=== PATIENT | female | born 1995 | race Two or more races ===

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

== ENCOUNTER 2017-01-10 01:33 | Emergency (ER) | payer MEDICAID ==
[~2017-01-10] VITALS: Ht 157.5 cm; Wt 44.0 kg
[~2017-01-10 01:33] MED LIST changes: +NKM; +PEPCID AC20 M2 PO
[2017-01-10 01:45] VITALS: BP 132/79
[2017-01-10] MEDS ORDERED: IBUPROFEN600 MG ORAL (01:59)
[2017-01-10] MEDS ORDERED: AMOXICILLIN500 MG ORAL (01:59)
--- NOTE | 2017-01-10 02:18 | Emergency Room Report ---
History of Present Illness General Chief Complaint: General Complaint Source: Patient Present Illness HPI 42-aung-uia-female no significant past medical history presenting with left- sided facial pain intermittently for one month. Patient states that she is coming into the emergency room now because it is now worse. Takes Tylenol with some relief. No fever or chills. No discharge from left ear. Also complaining of slight generalized headache, with slight photophobia, no phonophobia. No neck pain. No nausea vomiting diarrhea. No motor or sensory weakness. Allergies: Coded Allergies: No Known Allergies (Unverified , 11/08/16) Patient History Past Medical History: see triage record Past Surgical History: none Pertinent Family History: none Last Menstrual Period: Last month Now: No : 1 Reviewed Nursing Documentation: PMH: Agreed, PSxH: Agreed Review of Systems All Other Systems: negative except mentioned in HPI Physical Exam Vital Signs Date Time Temp Pulse Resp B/P (MAP) Pulse Ox O2 Delivery O2 Flow Rate FiO2 01/10/17 01:38 98.4 78 18 132/79 98 Room Air Sp02 EP Interpretation: reviewed, normal General Appearance: normal inspection, well appearing, no apparent distress, alert, GCS 15, non-toxic Head: normocephalic, atraumatic Eyes: bilateral eye normal inspection, bilateral eye PERRL, bilateral eye EOMI ENT: normal voice, moist mucus membranes, other - L intraoral tenderness buccal mucosa with mild hyperemia, no dental abscess palpated, also with mild L preauricular tenderness, no mastoid tenderness, b/l TM normal no erythema no effusion Neck: normal inspection, full range of motion, supple Respiratory: normal inspection, lungs clear, normal breath sounds, no respiratory distress, no retraction, no wheezing, speaking full sentences, chest symmetrical Cardiovascular #1: normal inspection, regular rate, rhythm, normal capillary refill Cardiovascular #2: 2+ radial (R), 2+ radial (L) Gastrointestinal: normal inspection, non tender, soft, non-distended, no guarding Musculoskeletal: normal inspection, back normal, normal range of motion, non- tender Neurologic: normal inspection, alert, oriented x3, responsive, car unloader III-XII nml as tested, motor strength/tone normal, sensory intact, cerebellar normal, normal gait, speech normal Psychiatric: normal inspection, judgement/insight normal, memory normal Skin: normal inspection, normal color, no rash, warm/dry, well hydrated, normal turgor Medical Decision Making Diagnostic Impression: Primary Impression: Cellulitis of intraoral region Additional Impression: Left facial pain ER Course 21-year-old female with intermittent left facial pain for one month, headache DDX: Primary headache, at this time not concerned with acute intracranial disease, patient appears very well, no neurological signs or symptoms ? Left-sided intra-aural early cellulitis Physical exam not consistent with acute otitis media, mastoiditis, otitis externa Plan: No intervention in the emergency room ER course: Patient has remained stable during ED stay. Disposition: Patient is to be discharged to home. Prescriptions given are amoxicillin and Motrin Patient is instructed to follow up with their primary care doctor within 5 days. Patient is instructed to follow up with ENT within 3 days. Strict return precautions discussed with patient such as fever, chills, worsening/severe pain, nausea, vomiting, which may indicate severe illness. Patient verbalizes understanding and agrees with plan. Please note that this Emergency Department Report was dictated using UserVoicemotor vehicle inspector technology software, occasionally this can lead to erroneous entry secondary to interpretation by the dictation equipment Last Vital Signs Date Time Temp Pulse Resp B/P (MAP) Pulse Ox O2 Delivery O2 Flow Rate FiO2 01/10/17 01:38 98.4 78 18 132/79 98 Room Air Disposition: HOME, SELF-CARE Condition: Stable Scripts Ibuprofen* (MOTRIN*) 600 Mg Tablet 600 MG ORAL Q8H Y for For Pain, #30 TAB 0 Refills Prov: Meenu Sam M.D. 01/10/17 Amoxicillin* (AMOXIL*) 500 Mg Capsule 500 MG ORAL THREE TIMES A DAY for 7 Days, #21 CAP 0 Refills Prov: Meenu Sam M.D. 01/10/17 Patient Instructions: Cellulitis, [id number] Additional Instructions: Please follow up with your primary care doctor within 3 days. Please follow up with an search engine marketing specialist in one week Please take your prescription medication as directed. Please come back to the emergency room if you are having rapid spread of rash, severe/worsening pain, blurry vision, neck pain, or intractable nausea or vomiting Meenu Sam M.D. Jan 10, 2017 02:18
[2017-01-10 02:20] VITALS: BP 132/79
== END 2017-01-10 02:02 | disposition home or self-care (01) ==
LOC: EMR 01:56
DX: K12.2 Cellulitis and abscess of mouth (principal); R51 Headache
CPT/HCPCS: 99283

== ENCOUNTER 2017-10-23 11:00 | Emergency (ER) | payer MEDICAID ==
[~2017-10-23] VITALS: Ht 157.5 cm; Wt 54.4 kg
[~2017-10-23 11:00] MED LIST changes: +AMOXICILLIN500 MG ORAL
[2017-10-23 11:23] VITALS: BP 112/77
[2017-10-23] MEDS ORDERED: Hydrogen Peroxide 473ml Bottle TOPIC ONE (11:24)
[2017-10-23] MEDS ORDERED: Lidocaine 1% 10mg/ml/Epi 0.005mg/ml 30ml vial INJ ONE (11:45)
[2017-10-23] MEDS ORDERED: Bacitracin Oint UD TOPIC ONE ×2 (12:53→13:15)
[2017-10-23] MEDS ORDERED: Tetanus/Diptheria/Pertussis Vaccine 0.5ml Syr IM ONE ×3 (12:54→13:16)
[2017-10-23] MEDS ORDERED: IBUPROFEN600 MG ORAL (12:56)
[2017-10-23] MEDS ORDERED: CEPHALEXIN500 MG ORAL (12:56)
--- NOTE | 2017-10-23 13:15 | Emergency Room Report ---
History of Present Illness General Chief Complaint: Laceration Source: Patient Present Illness HPI Patient is a 22-year-old female who presented after increased pain to her right upper extremity. Patient reportedly had accidental laceration to her right upper extremity which occurred after the glass broke. Patient denies intentional injury. She denies any recent tetanus vaccine. She states that she had not been having any pulsatile bleeding or numbness to the hands. She reports having been able to move her hand normally. She is right-hand dominant. Allergies: Coded Allergies: No Known Allergies (Unverified , 11/08/16) Patient History Last Menstrual Period: today Now: No Reviewed Nursing Documentation: PMH: Agreed; PSxH: Agreed Nursing Documentation-PMH Past Medical History: No History, Except For Review of Systems All Other Systems: negative except mentioned in HPI Physical Exam Vital Signs Date Time Temp Pulse Resp B/P (MAP) Pulse Ox O2 Delivery O2 Flow Rate FiO2 10/23/17 11:04 98.4 109 22 112/77 98 Room Air 98.4 General Appearance: well appearing, no apparent distress, alert, GCS 15 Head: normocephalic, atraumatic ENT: hearing grossly normal, normal voice Neck: full range of motion, supple Respiratory: no respiratory distress, speaking full sentences Musculoskeletal: no calf tenderness Neurologic: normal inspection, alert, oriented x3, normal gait Psychiatric: mood/affect normal Skin: no rash, laceration - multiple laceration to right upper extremity superfical. 1cm laceration to hand. 2 cm flap to right upper arm Procedures Laceration/Wound Repair Laceration/Wound Repair #1: Wound Location: upper extremity Wound's Depth, Shape: flap Wound Length (cm): 2 Wound Explored: clean Irrigated w/ Saline (ccs): 40 Betadine Prep?: Yes Anesthesia: Lidocaine w/ Epi Volume Anesthetic (ccs): 4 Wound Debrided: minimal Wound Repaired With: sutures Suture Size/Type: 4:0 Number of Sutures: 7 Patient Tolerated: Well Complications: None Laceration/Wound Repair #2: Wound Length (cm): 1 Wound Explored: clean Betadine Prep?: Yes Anesthesia: 1% Lidocaine Volume Anesthetic (ccs): 1 Wound Debrided: minimal Suture Size/Type: 4:0 Number of Sutures: 3 Patient Tolerated: Well Complications: None Medical Decision Making Diagnostic Impression: Primary Impression: Laceration Additional Impression: Foreign body ER Course Patient presented for laceration. Differential diagnoses included foreign body , nerve injury, arterial injury among others. The x-ray imaging of the right wrist 3 views interpreted by me showed laceration and soft tissue defect with normal bony alignment without evident fracture or foreign body. The patient's wound was irrigated and sutured with his suture. Patient was advised wound check in 2-3 days.The patient is advised to follow up with primary care doctor Patient is advised to return if any worsening condition or if any changes in status that are concerning. This report is dictated with [email or web address] photo lab technician software which may occasionally lead to discrepancies related to use of this software. Labs Test 10/23/17 13:00 Urine HCG, Qualitative Negative (NEGATIVE) Last Vital Signs Date Time Temp Pulse Resp B/P (MAP) Pulse Ox O2 Delivery O2 Flow Rate FiO2 10/23/17 11:23 98.4 22 112/77 98 Room Air 98.4 10/23/17 11:04 109 Status: improved Disposition: HOME, SELF-CARE Condition: Stable Scripts Ibuprofen* (MOTRIN*) 600 Mg Tablet 600 MG ORAL Q6H PRN for For Pain, #30 TAB Prov: Jf Temple MD 10/23/17 Cephalexin* (KEFLEX*) 500 Mg Capsule 500 MG ORAL EVERY 6 HOURS, #20 CAP Prov: Jf Temple MD 10/23/17 Patient Instructions: Laceration Care, Adult Jf Temple MD Oct 23, 2017 13:15
[2017-10-23 13:20] VITALS: BP 121/70
--- NOTE | 2017-10-24 13:07 | Diagnostic Imaging Report ---
Indication: Pain Technique: XRAY Wrist Complete R Comparison: None FINDINGS/IMPRESSION: There is soft tissue irregularity with likely laceration of in the soft tissues of the medial distal forearm. No associated fracture or dislocation. No radiopaque foreign body identified. This corresponds with the preliminary interpretation of the treating ER clinician, as documented in the electronic medical record.
== END 2017-10-23 13:20 | disposition home or self-care (01) ==
LOC: EMR 11:15
DX: S41.111A Laceration without foreign body of right upper arm, initial encounter (principal); S61.411A Laceration without foreign body of right hand, initial encounter; W25.XXXA Contact with sharp glass, initial encounter; Y92.9 Unspecified place or not applicable; Z23 Encounter for immunization
CPT/HCPCS: 12002; 73110; 81025; 90471; 90715; 99284; Z7502